=== PATIENT | male | born 1985 | race African-American/Black ===

== ENCOUNTER 2017-02-20 17:20 | Emergency (ER) | payer OTHER ==
[2017-02-20] MEDS ORDERED: NS 1,000 ML IV ONE (18:00)
[2017-02-20 19:32] LABS: BASO % 0.2 % (0.0-1.0); EOS # 0.1 K/mm3 (0.0-0.50); EOS % 1.5 % (0.0-3.0); LARGE UNSTAINED CELL # 0.1 K/mm3 (0.0-0.4); LARGE UNSTAINED CELL % 1.2 % (0.0-4.0); LYMPH # 1.2 K/mm3 (1.5-4.5); LYMPH % 26.4 % (24.0-44.0); MEAN CORPUSCULAR HEMOGLOBIN 31.2 pg (27.0-33.0); MEAN CORPUSCULAR VOLUME 84.6 fl (80.0-96.0); MONO # 0.3 K/mm3 (0.0-0.8); MONO % 7.2 % (0.0-5.0); NEUTROPHILS % 63.5 % (36.0-66.0); PLATELET COUNT, AUTOMATED 145 k/mm3 (150-450); RED CELL DISTRIBUTION WIDTH 12.8 % (11.5-14.5); WHITE BLOOD COUNT 4.7 K/mm3 (4.0-10.0)
[2017-02-20] MEDS ORDERED: MORPHINE 4 MG/ML 1ML SYRINGE IV ONE (19:45)
[2017-02-20] MEDS ORDERED: ONDANSETRON 4MG/2ML VIAL (J2405) IV ONE (19:45)
[2017-02-20 19:47] LABS: ALBUMIN 3.9 GM/DL (3.2-5.2); ALBUMIN/GLOBULIN RATIO 1.05 (1.00-1.93); ALKALINE PHOSPHATASE 52 U/L (45-117); ALT/SGPT 18 U/L (12-78); ANION GAP 5 MEQ/L (8-16); AST/SGOT 11 U/L (15-37); BILIRUBIN,DIRECT < 0.1 MG/DL (0.0-0.2); BILIRUBIN,TOTAL 0.2 MG/DL (0.2-1.0); BLOOD UREA NITROGEN 13 MG/DL (7-18); CALCIUM LEVEL 8.1 MG/DL (8.5-10.1); CARBON DIOXIDE LEVEL 30 MEQ/L (21-32); CHLORIDE LEVEL 104 MEQ/L (98-107); GLOMERULAR FILTRATION RATE > 60.0 (>60); GLUCOSE, FASTING 91 MG/DL (70-105); POTASSIUM SERUM 4.3 MEQ/L (3.5-5.1); SODIUM LEVEL 139 MEQ/L (136-145); TOTAL PROTEIN 7.6 GM/DL (6.4-8.2)
[2017-02-20] MEDS ORDERED: ISOVUE-370 76% 100ML VIAL (Q9967) As Ordered ONE (20:05)
[2017-02-20 20:39] LABS: MEAN CORPUSCULAR HGB CONC 36.9 g/dl (32.0-36.5)
--- NOTE | 2017-02-20 21:00 | REPUSA ---
CT angiogram of the chest Clinical statement: Chest pain and shortness of breath. Technique: Multiple axial CT images were obtained from the thoracic inlet through the upper abdomen a fter a bolus administration of nonionic intravenous contrast. Coronal and sagittal reconstructions we re also obtained. No comparison is available. Findings: The pulmonary arteries are well-opacified with contrast, with no intraluminal filling defec ts to suggest embolism. The thoracic aorta is unremarkable. Thyroid gland is within normal limits. Th ere is no thoracic lymphadenopathy. There are no pericardial or pleural effusions. The lungs are nicolle r. Limited imaging of the upper abdomen is unremarkable. There are no suspicious osseous lesions. Impression: Unremarkable CT examination of the chest. No evidence of pulmonary embolism.
[2017-02-20] MEDS ORDERED: NORCOTAB PO (21:11)
[2017-02-20] MEDS ORDERED: IBUP600T26 PO (21:11)
[2017-02-20 21:21] VITALS: BP 120/71
--- NOTE | 2017-02-21 01:14 | REP ---
Clinical: Dyspnea and cough . Comparison: None . Findings: The mediastinum and cardiac silhouette are stable and within normal limits for portable technique. The lung araya are clear without acute consolidation, effusion, or pneumothorax. Skeletal structures are intact. Impression: Normal portable chest x-ray Signed by Vikram Small MD 02/21/2017 01:06 A
--- NOTE | 2017-02-21 20:33 | ECGEPIP ---
Stationary ECG Study [facility] [place] - ED Test Date: 2017-02-20 Pat Name: TAMARA LEE Department: Room: - Gender: M [employer] Consult[employer]: rn : 1985 Requested By: Huma Mesa Order Number: [id number] Reading MD: Ginette Castro Measurements Intervals [place] Rate: 72 P: 52 ND: 177 QRS: 64 QRSD: 81 T: 43 QT: 345 QTc: 378 Interpretive Statements SINUS RHYTHM NONSPECIFIC T-WAVE ABNORMALITY NO PRIOR FOR COMPARISON Electronically Signed On 02-21-2017 20:32:51 EDT by Ginette Castro
== END 2017-02-20 22:03 | disposition home or self-care (01) ==
LOC: EDBD 17:20 → M ED 17:27
DX: R09.1 Pleurisy (principal); R07.9 Chest pain, unspecified; R76.11 Nonspecific reaction to tuberculin skin test without active tuberculosis
CPT/HCPCS: 71010; 71275; 80048; 80076; 82550; 82553; 83605; 85025; 85379; 87040; 87804; 93005; 93041; 94760; 96374; 96375; 99284; J2405; Q9967

== ENCOUNTER 2018-02-28 10:21 | Emergency (ER) | payer OTHER ==
[2018-02-28] MEDS: METOCLOPRAMIDE INJ 10MG/2ML VIAL (J2765) IV (11:22)
[2018-02-28] MEDS: KETOROLAC 30 MG/ML VIAL (J1885) IV (11:22)
[2018-02-28] MEDS: NS 1,000 ML IV (11:23)
[2018-02-28] MEDS: ONDANSETRON 4MG/2ML VIAL (J2405) IV (12:19)
[2018-02-28] MEDS: MORPHINE 4 MG/ML 1ML VIAL/SYRINGE (J2270) IV (12:20)
[2018-02-28] MEDS: ACETAMINOPHEN TAB 650MG DOSE (2X325MG) PO (12:30)
[2018-02-28] MEDS ORDERED: IBUPROFEN 600 MG TAB PO (12:30)
[2018-02-28] MEDS: IBUPROFEN 600 MG TAB PO (12:34)
== END 2018-02-28 13:20 | disposition home or self-care (01) ==
LOC: M ED 10:21
DX: R51 Headache (principal)
CPT/HCPCS: J2270